=== PATIENT | male | born 1960 | race African-American/Black ===

== ENCOUNTER 2017-02-06 15:21 | Emergency (ER) | payer OTHER ==
[~2017-02-06] VITALS: Ht 170.2 cm; Wt 74.4 kg
--- NOTE | ~2017-02-06 | EKG ---
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: Kenisha KENT : 1960 Requested By: Rochelle Avilez Order Number: [id number] MD: Senthil Najera Measurements Intervals [place] Rate: 90 P: 23 [place]: 167 QRS: -17 QRSD: 101 T: 29 QT: 406 QTc: 497 Interpretive Statements Sinus rhythm Left ventricular hypertrophy Borderline prolonged QT interval No previous ECG available for comparison Electronically Signed On 02-07-2017 8:39:19 CDT by Senthil Najera [email or web address] <ELECTRONICALLY SIGNED> By: Senthil Najera MD, [facility] 02/07/17 0839 [id number] Senthil Najera MD, FACC /EPI
[2017-02-06 16:25] LABS: ABSOLUTE NEUTROPHILS 6.9 thou/uL (1.4-8.2); BASOPHILS 0.7 % (0.0-2.0); HEMATOCRIT 33.1 % (42.0-52.0); HEMOGLOBIN 10.4 gm/dL (14.0-18.0); LYMPHOCYTES 23.4 % (24.0-44.0); MANUAL DIFF NO; MCH 22.4 pg (26.0-34.0); MCHC 31.6 g/dL (28.0-37.0); PLATELET COUNT 350 thou/uL (150-400); POLYS 67.9 % (36.0-66.0); RBC 4.66 mil/uL (4.50-6.00); RDW 21.6 % (10.5-14.5); WBC 10.1 thou/uL (4.0-11.0)
[2017-02-06 16:45] LABS: ANION GAP 8 mmol/L (7-16); BUN 13 mg/dL (7-18); CALCIUM 8.6 mg/dL (8.5-10.1); CHLORIDE 103 mmol/L (98-107); CO2 27 mmol/L (21-32); CREATININE 1.1 mg/dL (0.7-1.3); GLUCOSE 155 mg/dL (74-106); POTASSIUM 3.6 mmol/L (3.5-5.1); SODIUM 138 mmol/L (136-145)
[2017-02-06 16:51] LABS: ALBUMIN 2.9 g/dL (3.4-5.0); ALKALINE PHOSPHATASE 85 U/L (46-116); DIRECT BILIRUBIN < 0.1 mg/dL (<0.1-0.3); SGOT 30 U/L (15-37); SGPT 25 U/L (30-65); TOTAL BILIRUBIN 0.2 mg/dL (<0.1-1.0); TOTAL PROTEIN 6.9 g/dL (6.4-8.2); TROPONIN-I < 0.04 ng/mL (<0.04-0.07)
[2017-02-06] MEDS ORDERED: NORCO 5-325 TA1 EACH PO (18:00)
[2017-02-06 18:22] VITALS: BP 173/89
== END 2017-02-06 18:24 | disposition home or self-care (01) ==
LOC: ER 15:21
PROVIDERS: Emergency Medicine
DX: I16.0 Hypertensive urgency (principal); K85.90 Acute pancreatitis without necrosis or infection, unspecified; I10 Essential (primary) hypertension; I25.10 Atherosclerotic heart disease of native coronary artery without angina pectoris; Z95.5 Presence of coronary angioplasty implant and graft

== ENCOUNTER 2017-03-28 11:25 | Inpatient (IN) | payer OTHER ==
[~2017-03-28] VITALS: Ht 170.2 cm; Wt 75.3 kg
[~2017-03-28 11:25] MED LIST: NORCO 5-325 TA1 EACH PO
[2017-03-28 11:26] VITALS: BP 137/79
[2017-03-28] MEDS ORDERED: CARVEDILOL25 MG PO (12:57)
[2017-03-28] MEDS ORDERED: CATAPRES0.2 MG PO (12:57)
[2017-03-28 13:04] LABS: RBC 3.3 mil/uL (4.50-6.00); RDW 23.1 % (10.5-14.5)
[2017-03-28 13:05] LABS: MCH 17.6 pg (26.0-34.0); MCHC 29.4 g/dL (28.0-37.0); MCV 59.8 fL (80.0-100.0); WBC 7.7 thou/uL (4.0-11.0)
[2017-03-28 13:07] LABS: HEMATOCRIT 19.8 % (42.0-52.0); HEMOGLOBIN 5.8 gm/dL (14.0-18.0)
[2017-03-28 13:12] LABS: CALCIUM 8.8 mg/dL (8.5-10.1); CREATININE 1.1 mg/dL (0.7-1.3); POTASSIUM 3.9 mmol/L (3.5-5.1)
[2017-03-28 14:43] VITALS: BP 164/85
[2017-03-28] MEDS ORDERED: ASPIR 8181 M1 PO (15:31)
[2017-03-28 15:52] LABS: % SATURATION 2 % (20-39); IRON 12 ug/dL (65-175); TIBC 535 ug/dL (250-450); UIBC 523 ug/dL
[2017-03-28 15:54] VITALS: BP 156/83; BP 161/81
[2017-03-28 16:35] VITALS: BP 156/83
[2017-03-28 16:36] LABS: FOLIC ACID 7.6 ng/mL (8.6-58.9)
[2017-03-28 16:57] LABS: ALBUMIN 3.2 g/dL (3.4-5.0); ALKALINE PHOSPHATASE 110 U/L (46-116); DIRECT BILIRUBIN < 0.1 mg/dL (<0.1-0.3); SGOT 19 U/L (15-37); SGPT 14 U/L (30-65); TOTAL BILIRUBIN 0.1 mg/dL (<0.1-1.0); TOTAL PROTEIN 6.6 g/dL (6.4-8.2)
[2017-03-28 19:35] VITALS: BP 148/103
[2017-03-28 20:45] VITALS: BP 149/77; BP 151/82; BP 161/81
[2017-03-29 00:15] VITALS: BP 141/76; BP 143/76; BP 149/77
[2017-03-29 03:45] VITALS: BP 141/80
[2017-03-29 07:46] LABS: HEMATOCRIT 28.6 % (42.0-52.0); MCHC 31.7 g/dL (28.0-37.0); WBC 7.1 thou/uL (4.0-11.0)
[2017-03-29 07:49] LABS: PLATELET COUNT 266 thou/uL (150-400); RBC 4.31 mil/uL (4.50-6.00); RDW 28.4 % (10.5-14.5)
[2017-03-29 07:51] LABS: HEMOGLOBIN 9.1 gm/dL (14.0-18.0); MCV 66.3 fL (80.0-100.0)
[2017-03-29 07:52] VITALS: BP 149/88
[2017-03-29 07:52] LABS: MANUAL DIFF YES
[2017-03-29 07:57] LABS: CALCIUM 8.5 mg/dL (8.5-10.1); CREATININE 0.9 mg/dL (0.7-1.3); MAGNESIUM 1.6 mg/dL (1.8-2.4); POTASSIUM 3.4 mmol/L (3.5-5.1)
[2017-03-29 08:49] LABS: ABSOLUTE NEUTROPHILS 4.4 thou/uL (1.4-8.2); ANISOCYTOSIS 3+; HYPOCHROMASIA 3+; TARGET CELLS 1+; TOTAL CELL COUNT 100
[2017-03-29 08:50] LABS: MICROCYTES 2+; PLATELET ESTIMATE NORMAL
== END 2017-03-29 16:15 | disposition short-term general hospital (02) | DRG 812 ==
LOC: ER 11:25 → 4S 13:29 → EROBS 13:29 → 4S 14:20
PROVIDERS: Nurse Practitioner; Nurse Practitioner Adult Health; Physician Assistant
PROC: 30233N1 Transfusion of Nonautologous Red Blood Cells into Peripheral Vein, Percutaneous Approach (ICD-10-PCS; principal; 2017-03-28)
DX: D62 Acute posthemorrhagic anemia (principal); I10 Essential (primary) hypertension; I25.10 Atherosclerotic heart disease of native coronary artery without angina pectoris; D50.9 Iron deficiency anemia, unspecified; J42 Unspecified chronic bronchitis; Z98.62 Peripheral vascular angioplasty status; F17.210 Nicotine dependence, cigarettes, uncomplicated; Z80.9 Family history of malignant neoplasm, unspecified; Z82.3 Family history of stroke; Z79.82 Long term (current) use of aspirin; Z79.899 Other long term (current) drug therapy; Z98.49 Cataract extraction status, unspecified eye
CPT/HCPCS: 10100